=== PATIENT | male | born 1950 | race Caucasian/White ===

== ENCOUNTER 2016-12-31 09:36 | Emergency (ER) | payer OTHER ==
[2016-12-31 09:44] VITALS: BP 147/100
[2016-12-31] MEDS ORDERED: Ondansetron INJ* 2 MG/ML VIAL IV ONE (10:17)
[2016-12-31] MEDS ORDERED: Morphine INJ* 10 MG/ML 1 ML CARPUJECT IV ONE (10:17)
--- NOTE | 2016-12-31 11:53 | RAD ---
Indication: Pain and numbness LEFT shoulder and arm post fall. Comparison: None. Technique: Supine AP and scapular Y views LEFT shoulder. Report: Normal acromioclavicular joint alignment. Anterior glenohumeral dislocation. On the scapular Y view there is suggestion of associated mild Hill-Sachs impaction fracture at the posterior lateral margin of the humeral head. Mild soft tissue swelling about the shoulder. IMPRESSION: Anterior glenohumeral joint dislocation with probable mild Hill-Sachs impaction fracture of the humeral head.
--- NOTE | 2016-12-31 12:17 | RAD ---
Indication: Post reduction glenohumeral dislocation. Comparison: Prereduction exam of the same date. Technique: AP and scapular Y views LEFT shoulder. REPORT AND IMPRESSION: Restored alignment at the glenohumeral joint. Small posterior lateral humeral head Hill-Sachs impaction fracture noted without change.
[2016-12-31] MEDS ORDERED: HYDROcodone/ACETAMIN 5-325 MG* 1 TAB PO ONE (12:35)
--- NOTE | 2016-12-31 14:51 | ED ---
oJse Barrow Matthew, scribed for Joe Henning MD on 12/31/16 at 1024 . Upper Extremity Pain - HPI Summary HPI Summary: A 66 y/o male presents to the ED with sudden, constant left shoulder pain since 09:20 this morning. The pain is rated 8/10 in severity. The patient states that he stepped off the back of his truck, slipped, and tried to catch him self against an adjacent wall with his left arm extended over his head. Associated symptoms include nausea. He denies heart or lung illnesses. PMHx includes barretts esophagus and HTN. - History of Current Complaint Chief Complaint: EDShouldJoselaPoonamj Stated Complaint: SHOULDER INJURY Time Seen by Provider: 12/31/16 10:13 Hx Obtained From: Patient Mechanism Of Injury: Fall From Height Of: - Truckbed Onset/Duration: Started Minutes Ago, Traumatic, Still Present Timing: Constant Severity Initially: Moderate Severity Currently: Moderate Pain Location: Shoulder - LT Aggravating Factor(s): Movement Associated Signs & Symptoms: Positive: Nausea - Allergies/Home Medications Allergies/Adverse Reactions: Allergies Allergy/AdvReac Type Severity Reaction Status Date / Time No Known Allergies Allergy Verified 12/31/16 09:41 PMH/Surg Hx/FS Hx/Imm Hx Cardiovascular History: Reports: Hx Hypertension GI History: Reports: Other GI Disorders - barretts esophagus Infectious Disease History: No Infectious Disease History: Denies: Traveled Outside the [place] in Last 30 Days - Family History Known Family History: Positive: Unknown - Unable to obtain from pain distress - Social History Occupation: Employed Full-time - [employer] supervisor Alcohol Use: Occasionally Hx Substance Use: No Substance Use Type: Reports: None Hx Tobacco Use: No Smoking Status (MU): Never Smoked Tobacco Review of Systems Constitutional: Negative Eyes: Negative ENT: Negative Cardiovascular: Negative Respiratory: Negative Positive: Nausea Genitourinary: Negative Positive: Myalgia - LT shoulder pain Skin: Negative Neurological: Negative Psychological: Normal All Other Systems Reviewed And Are Negative: Yes Physical Exam Triage Information Reviewed: Yes Vital Signs On Initial Exam: Initial Vitals Temp Pulse Resp BP Pulse Ox 97.3 F 83 18 147/100 100 12/31/16 09:38 12/31/16 09:38 12/31/16 09:38 12/31/16 09:38 12/31/16 09:38 Vital Signs Reviewed: Yes Appearance: Positive: Pain Distress Skin: Positive: Warm, Skin Color Reflects Adequate Perfusion Head/Face: Positive: Normal Head/Face Inspection Eyes: Positive: Normal, EOMI Neck: Positive: Supple Respiratory/Lung Sounds: Positive: Clear to Auscultation, Breath Sounds Present Cardiovascular: Positive: Normal, RRR. Negative: Murmur Abdomen Description: Positive: Nontender Musculoskeletal: Positive: Other - left shoulder clinically dislocated. he has motion and sensation of left hand and radial pulses present. Neurological: Positive: Normal, Sensory/Motor Intact, Alert, Oriented to Person Place, Time, CN Intact II-III Psychiatric: Positive: Normal - Cherelle Coma Scale Best Eye Response: 4 - Spontaneous Best Motor Response: 6 - Obeys Commands Best Verbal Response: 5 - Oriented Procedures - Joint Reduction Joint Reduction Site: shoulder (L) Conscious Sedation: No Reduction Attempts: 1 Pre-Procedure NV Exam: Yes - He has trouble moving his fingers left hand, tingling arm forearm, -rad pul Diagnostics - Vital Signs Vital Signs Temp Pulse Resp BP Pulse Ox 12/31/16 09:38 97.3 F 83 18 147/100 100 - Laboratory Lab Statement: Any lab studies that have been ordered have been reviewed, and results considered in the medical decision making process. - Radiology LT Shoulder XR Xray Interpretation: Positive (See Comments) - IMPRESSION: Anterior glenohumeral joint dislocation with probable mild Hill-Sachs impaction fracture of the humeral head. Radiology Interpretation Completed By: Radiologist LT Shoulder XR Repeat Xray Interpretation: Positive (See Comments) - IMPRESSION: Restored alignment at the glenohumeral joint. Small posterior lateral humeral head Hill-Sachs impaction fracture noted without change. Radiology Interpretation Completed By: Radiologist Re-Evaluation - Re-Evaluation First Eval Re-Evaluation Time: 11:15 Change: Worse Comment: complains of difficulty moving finger, tingling in left forearm and left hand, do not feel radial pulse Second Eval Re-Evaluation Time: 12:41 Change: Improved - After the patient' shoulder was reduced he regained all mechanical function in the right hand and numbness and tingling went away except for mild tingling in the left thumb. Course/Dx - Course Course Of Treatment: 66 yr old male who had neuro vasc compromise and joint reduced with some minimal residual tingling to the left thumb. I have discussed the case with Dr. Porras, orthopedic surgery and she recommends shoulder immobilizer and follow up with them on monday. - Diagnoses Provider Diagnoses: Shoulder dislocation, Hill Sachs deformity, left - Physician Notifications Discussed Care Of Patient With: Dr. Porras (Ortho) at 12:37 -- Notified of patient's history Discharge - Discharge Plan Condition: Good Disposition: HOME Prescriptions: HYDROcodone/ACETAMIN 5-325 MG* [[place] 5-325 TAB*] 1 tab PO Q6H PRN #14 tab MDD 4 PRN Reason: Pain - Mild To Moderate Patient Education Materials: Shoulder Dislocation (ED) Referrals: Jenna Porras MD [Medical Doctor] - 01/02/17 The documentation as recorded by the Jose lewis Matthew accurately reflects the service I personally performed and the decisions made by me, Joe Henning MD.
== END 2016-12-31 13:21 | disposition home or self-care (01) ==
LOC: ED 09:36
DX: S42.292A Other displaced fracture of upper end of left humerus, initial encounter for closed fracture (principal); S43.005A Unspecified dislocation of left shoulder joint, initial encounter; W18.40XA Slipping, tripping and stumbling without falling, unspecified, initial encounter; Y92.9 Unspecified place or not applicable; I10 Essential (primary) hypertension
CPT/HCPCS: 23650; 96374; 96375; 99283; J2270; J2405

== ENCOUNTER 2018-12-10 10:55 | Emergency (ER) | payer OTHER ==
--- NOTE | 2018-12-10 11:20 | ED ---
Abdominal Pain/Male - HPI Summary HPI Summary: A 67 y/o male brought in by [facility] ambulance presents to [facility] with a chief complaint of upper abdominal pain radiating to both sides of his lower back since the morning og 12/10/18. He has a Hx of kidney stones, but claims that his back pain was one sided when he had kidney stones, which is unlike his current symptoms. He describes his pain as sharp. The patient was seen at when his pain was a "12/10". After he was given IV toradol there, he rates his pain in the ED as a 4/10. He denies any N/V but c/o gas. He also has a Hx of mesenteric inflammation. - History of Current Complaint Chief Complaint: EDAbdPain Stated Complaint: ABD PAIN Time Seen by Provider: 12/10/18 11:08 Hx Obtained From: Patient Onset/Duration: Sudden Onset, Lasting Hours, Still Present Timing: Constant Severity Initially: Severe Severity Currently: Moderate Pain Intensity: 4 Pain Scale Used: 0-10 Numeric Location: Epigastric Radiates: Yes Radiates to: Back Character: Sharp Aggravating Factor(s): Nothing Alleviating Factor(s): Medications Associated Signs And Symptoms: Positive: Back Pain, Other - positive: gas. Negative: Nausea, Vomiting - Allergies/Home Medications Allergies/Adverse Reactions: Allergies Allergy/AdvReac Type Severity Reaction Status Date / Time No Known Allergies Allergy Verified 12/10/18 11:06 PMH/Surg Hx/FS Hx/Imm Hx Cardiovascular History: Reports: Hx Hypertension GI History: Reports: Other GI Disorders - barretts esophagus, mesenteric inflammation History: Reports: Hx Kidney Stones Infectious Disease History: No Infectious Disease History: Denies: Traveled Outside the [place] in Last 30 Days - Family History Known Family History: Positive: Diabetes - paternal grandmother Negative: Cardiac Disease, Hypertension - Social History Alcohol Use: Occasionally Hx Substance Use: No Substance Use Type: Reports: None Hx Tobacco Use: No Smoking Status (MU): Never Smoked Tobacco Review of Systems Negative: Fever Positive: Abdominal Pain, Other - positive: gas. Negative: Vomiting, Nausea Positive: Myalgia - back pain All Other Systems Reviewed And Are Negative: Yes Physical Exam - Summary Physical Exam Summary: Appearance: The patient is well-nourished in no acute distress and in no acute pain. Skin: The skin is warm and dry and skin color reflects adequate perfusion. HEENT: The head is normocephalic and atraumatic. The pupils are equal and reactive. The conjunctivae are clear and without drainage. Nares are patent and without drainage. Mouth reveals moist mucous membranes and the throat is without erythema and exudate. The external ears are intact. The ear canals are patent and without drainage. The tympanic membranes are intact. Neck: The neck is supple with full range of motion and non-tender. There are no carotid bruits. There is no neck vein distension. Respiratory: Chest is non-tender. Lungs are clear to auscultation and breath sounds are symmetrical and equal. Cardiovascular: Heart is regular rate and rhythm. There is no murmur or rub auscultated. There is no peripheral edema and pulses are symmetrical and equal. Abdomen: Mild tenderness in the epigastrium. There are normal bowel sounds heard in all four quadrants and there is no organomegaly palpated. Musculoskeletal: There is no back tenderness noted. Extremities are non-tender with full range of motion. There is good capillary refill. There is no peripheral edema or calf tenderness elicited. Neurological: Patient is alert and oriented to person, place and time. The patient has symmetrical motor strength in all four extremities. Cranial nerves are grossly intact. Deep tendon reflexes are symmetrical and equal in all four extremities. Psychiatric: The patient has an appropriate affect and does not exhibit any anxiety or depression. Triage Information Reviewed: Yes Vital Signs On Initial Exam: Initial Vitals Temp Pulse Resp BP Pulse Ox 97.5 F 75 20 156/91 99 12/10/18 11:03 12/10/18 11:03 12/10/18 11:03 12/10/18 11:03 12/10/18 11:03 Vital Signs Reviewed: Yes Diagnostics - Vital Signs Vital Signs Temp Pulse Resp BP Pulse Ox 12/10/18 11:03 97.5 F 75 20 156/91 99 - Laboratory Result Diagrams: 12/10/18 11:28 12/10/18 11:28 Lab Statement: Any lab studies that have been ordered have been reviewed, and results considered in the medical decision making process. Re-Evaluation - Re-Evaluation First Eval Re-Evaluation Time: 13:03 Change: Improved Comment: Completely pain free and nontender. Abdominal Pain Fem Course/Dx - Course Course Of Treatment: Mr. Clark [facility] from [facility] after the acute onset of an epigastric pain that went into his back. He was evaluated and found to be diffusely tender in the abdomen at [facility]. He was given a shot of Toradol and by the time he got here he was starting to feel better. He was nontoxic in appearance, his vital signs were stable and his abdomen was mildly tender in the epigastrium. Labs were obtained and were unremarkable and on reevaluation his pain was completely gone and he was nontender. He states that the same thing happened to him once before with the sudden onset of a similar pain. At that time he went to the [facility] and was transferred to an emergency department where CT scan was obtained. That time they found some inflamed area and he was told that it wasn' t dangerous. We discussed CAT scan today and he feels it is not necessary as he is completely improved and he has a [facility]oremaker floor follow-up with. - Diagnoses Provider Diagnoses: Abdominal pain Discharge - Sign-Out/Discharge Documenting (check all that apply): Patient Departure - DC - Discharge Plan Condition: Stable Disposition: HOME Referrals: [facility] [Outside] (2-3 days) Additional Instructions: Follow up with your [facility] floor. Return to the ED if you experience any new or worsening symptoms. - Billing Disposition and Condition Condition: STABLE Disposition: Home - Attestation Statements Document Initiated by Art: Yes Documenting Scribe: Kehinde Etienne Provider For Whom Art is Documenting (Include Credential): Selvin Otto MD Scribe Attestation: IKehinde, scribed for Selvin Otto MD on 12/10/18 at 1334. Scribe Documentation Reviewed: Yes Provider Attestation: The documentation as recorded by the Kehinde lewis accurately reflects the service I personally performed and the decisions made by me, Selvin Otto MD Status of Scribe Document: Viewed
[2018-12-10 11:38] LABS: ABS Basophils 0 10^3/ul (0-0.2); ABS Eosinophils 0 10^3/ul (0-0.6); ABS Lymphocytes 0.9 10^3/ul (1.0-4.8); ABS Monocytes 0.6 10^3/ul (0-0.8); ABS Nucleated RBC 0 10^3/ul; Eosinophil % 0.1 %; Hematocrit 50 % (42-52); Hemoglobin 16.8 g/dl (14.0-18.0); Mean Corpuscular HGB Conc 34 g/dl (31-36); Mean Corpuscular Hemoglobin 30 pg (27-31); Mean Corpuscular Volume 89 fL (80-94); Mean Platelet Volume 8.1 fL (7.4-10.4); Nucleated Red Blood Cells % 0.1; Platelet Count 204 10^3/ul (150-450); Red Blood Count 5.62 10^6/ul (4.00-5.40); Red Cell Distribution Width 14 % (10.5-15); White Blood Count 9.5 10^3/ul (3.5-10.8)
[2018-12-10 11:44] LABS: INR 0.94 (0.77-1.02)
[2018-12-10 11:58] LABS: ALT 8 U/L (7-52); AST 18 U/L (13-39); Albumin/Globulin Ratio 1.8 (1-3); Alkaline Phosphatase 60 U/L (34-104); Anion Gap 5 mmol/L (2-11); BUN/Creatinine Ratio 13.4 (8-20); Blood Urea Nitrogen 17 mg/dL (6-24); CO2 Carbon Dioxide 27 mmol/L (22-32); Calcium 9.2 mg/dL (8.6-10.3); Chloride 107 mmol/L (101-111); EGFR Non-African American 56.6 (>60); Globulin 2.2 g/dL (2-4); Glucose 123 mg/dL (70-100); Potassium 4.2 mmol/L (3.5-5.0); Sodium 139 mmol/L (135-145); Total Protein 6.2 g/dL (6.4-8.9)
[2018-12-10 11:59] LABS: Urine Appearance Clear; Urine Bilirubin Negative (Negative); Urine Blood Negative (Negative); Urine Color Yellow; Urine Glucose Negative (Negative); Urine Ketones Trace (Negative); Urine Nitrite Negative (Negative); Urine Protein Negative (Negative); Urine Specific Gravity 1.021 (1.010-1.030); Urine Urobilinogen Negative (Negative)
[2018-12-10 12:45] VITALS: BP 143/87
== END 2018-12-10 13:25 | disposition home or self-care (01) ==
LOC: ED 10:55
DX: R10.9 Unspecified abdominal pain (principal); M54.9 Dorsalgia, unspecified
CPT/HCPCS: 36415; 80053; 81003; 83605; 83690; 84484; 85025; 85610; 86140; 99283